=== PATIENT | male | born 1970 | race Caucasian/White ===

== ENCOUNTER 2019-01-20 18:04 | Emergency (ER) | payer BC, OTHER ==
[~2019-01-20] VITALS: Ht 182.9 cm; Wt 70.0 kg
[2019-01-20 18:20] VITALS: Ht 182.9 cm; Wt 70.0 kg
[2019-01-20] MEDS ORDERED: LIDOCAINE 2% (MDV) 20 ML INJ INJ STA (18:35)
[2019-01-20] MEDS ORDERED: DIPHTH/TET/ACEL PERTUSS (ADULT) 0.5 ML VIAL IM* ONE (19:00)
[2019-01-20] MEDS ORDERED: SULF1TAB31 PO (19:13)
[2019-01-20] MEDS ORDERED: ACET500C5 PO (19:44)
[2019-01-20 19:56] VITALS: BP 177/85; PULSE 68; RESP 18
--- NOTE | 2019-01-20 20:14 | ERD ---
ER Documentation Chief Complaint Chief Complaint Left thumb laceration HPI This is a 49-year-old male with history of hypertension who is brought in by rescue ambulance after striking left thumb with an ax earlier today. Patient states that he was chopping wood [employer] when he accidentally cut the tip of his left first digit off. Patient admits to bleeding and pain. Patient denies any tingling, numbness, lack sensation, decreased range of motion all the symptoms. Unsure if tetanus is up-to-date. Does not take blood thinners daily. ROS All systems reviewed and are negative except as per history of present illness. Medications Home Meds Active Scripts Acetaminophen* (Tylophen*) 500 Mg Capsule, 1 CAP PO Q6H PRN for PAIN AND OR ELEVATED TEMP, #20 CAP Prov:PARVEZ CAMPO PA-C 01/20/19 Sulfamethoxazole/Trimethoprim* (Bactrim Ds* Tablet) 1 Each Tablet, 1 TAB PO BID, #14 TAB Prov:PARVEZ CAMPO PA-C 01/20/19 PMhx/Soc Hx Cardiac Disorders: Yes (HTN) Hx Alcohol Use: Yes (OCCASIONALLY) Hx Substance Use: No Hx Tobacco Use: Yes Smoking Status: Current some day smoker Physical Exam Vitals Vital Signs Date Temp Pulse Resp B/P (MAP) Pulse Ox O2 O2 Flow FiO2 Time Delivery Rate 01/20/19 98.0 68 18 177/85 96 Room Air 19:56 (115) 01/20/19 98.1 80 18 168/80 100 18:20 (109) Physical Exam Physical Exam Vitals signs: Reviewed by me. General: Well developed, well nourished, in no acute distress. Patient is awake and alert. Head: Normocephalic, atraumatic. Eyes: Normal conjunctiva, Pupils PERRLA, EOM intact grossly ENT: Pharynx is clear, Moist mucous membranes, external ears, nose and mouth normal Neck: Supple, no masses, lymphadenopathy or JVD Respiratory: Clear to auscultation bilaterally with no wheezing, rhonchi, rales, no distress Cardiovascular: RRR, no murmurs, rubs, or gallops Upper Extremity -left Skin: There is an avulsion of patient's left first digit, no bone is exposed, there is some active bleeding, Compartments: Soft Motor: Full active range of motion hand/fingers Sensation: Intact shoulder/pinky/middle finger/thumb web space Bones: Nontender forearm/wrist/hand Snuffbox: Nontender Joints: No effusion Pulses/Perfusion: 2+ radial, Capillary refill < 2 seconds Radial ulnar and median nerve tested for sensory motor deficit without any dysfunction Neurologic: Alert and oriented, moving all extremities, normal speech, no focal weakness, no cerebellar signs. Normal mentation Skin: warm and dry, No rash Psych: Normal mood Results 24 hrs Current Medications Medications Dose Sig/David Start Time Status Last (Trade) Ordered Route PRN Stop Time Admin Dose Reason Admin Diphtheria/ 0.5 ml ONCE ONCE 01/20/19 DC 01/20/19 Tetanus/Acell IM* 19:00 18:48 Pertussis 01/20/19 19:01 (Adacel) Lidocaine 20 ml ONCE STAT 01/20/19 DC (Xylocaine INJ 18:35 2% (Mdv) 20 01/20/19 18:36 ml) Procedures/MDM PROCEDURES: Laceration Repair by me: Anesthesia: Digital block with 2% lidocaine Location: Left first digit Tendon/Joint/Nerves: No injury Foreign body: None detected after copious irrigation and exploration Technique: 2 [id number] sutures were used to stop bleeding Complexity: No subcutaneous sutures/mucosal repair/edge excision Patient's bleeding was easily controlled in the department and there is no indication of anemia. No evidence of compartment syndrome, neurologic injury, vascular injury, open joint, tendon laceration, or foreign body. Patient is appropriate for outpatient follow up. 48 hour wound check. Scar minimization instructions given. ER COURSE: The patient was stable throughout ED course. I kept the patient and/or family informed of laboratory and diagnostic imaging results throughout the emergency room course. The patient was promptly evaluated and a treatment plan was devised based on H&P and other data. This plan was discussed with the patient who agreed and had no further questions or concerns prior to discharge. [employer]-year male presents ED with avulsion of left first digit. X-ray showed no fractures or dislocation. Bleeding of patient's left first digit was stopped with 2 [id number] sutures. No evidence of compartment syndrome, neurologic injury, vascular injury, open joint, tendon laceration, fracture, dislocation, or foreign body. Patient's vitals are stable and pt can be managed with close out patient follow up. Advised patient to return to ED or to be seen by primary care for a 48 hour wound check. Pt will also need to return to ED or be seen by primary care provider to have sutures removed in 7-10 days. Return to ED with any worsening symptoms and if patient starts experiencing fever, chills, purulent drainage, warmth, swelling at laceration site this may be indications that wound has become infected and patient may need antibiotics. DISPOSITION PLAN: We discussed follow up with the patient's primary care doctor within 24 to 48 hours. Patient counseled regarding my diagnostic impression and care plan. Prior to discharge all questions answered. Pt agrees with treatment plan and understands strict return precautions. Precautionary instructions provided including instructions to return to the ER if not improving or for any worsening or changing symptoms or concerns. SPECIALIST FOLLOW UP RECOMMENDED: None Patient has been advised to follow up with primary care in 1-2 days. Disclaimer: Inadvertent spelling and grammatical errors are likely due to EHR/dictation software use and do not reflect on the overall quality of patient care. Also, please note that the electronic time recorded on this note does not necessarily reflect the actual time of the patient encounter. Blood Pressure Assessment: Patient's blood pressure was elevated (>120/80) but appears stable without evidence of hypertension emergency or urgency. The patient was counseled about the risks of hypertension and urged to pursue outpatient monitoring and therapy within a week with their primary care fredi anMoustapha Guaman Diagnosis: Primary Impression: Finger avulsion Encounter type: initial encounter Qualified Codes: S61.209A - Unspecified open wound of unspecified finger without damage to nail, initial encounter Condition: Stable Patient Instructions: Laceration, All, Nail Avulsion, Complete Referrals: [facility] YOU HAVE RECEIVED A MEDICAL SCREENING EXAM AND THE RESULTS INDICATE THAT YOU DO NOT HAVE A CONDITION THAT REQUIRES URGENT TREATMENT IN THE EMERGENCY DEPARTMENT. FURTHER EVALUATION AND TREATMENT OF YOUR CONDITION CAN WAIT UNTIL YOU ARE SEEN IN YOUR DOCTORS OFFICE WITHIN THE NEXT 1-2 DAYS. IT IS YOUR RESPONSIBILITY TO MAKE AN APPOINTMENT FOR FOLOW-UP CARE. IF YOU HAVE A PRIMARY DOCTOR --you should call your primary doctor and schedule an appointment IF YOU DO NOT HAVE A PRIMARY DOCTOR YOU CAN CALL OUR PHYSICIAN REFERRAL HOTLINE AT IF YOU CAN NOT AFFORD TO SEE A PHYSICIAN YOU CAN CHOSE FROM THE FOLLOWING [facility] [address] [facility] [address] [facility] [address] [facility] [address] [facility] [address] [facility]. [facility] [address] Additional Instructions: Return in 2 days or be seen by her primary care physician for wound check. Will need to have sutures removed in roughly 10 days. Patient advised to return to the ED immediately for new or worsening symptoms. Patient advised to follow up with primary care provider in the next 24-48 hours. Patient verbalized understanding and agrees with treatment plan and course of action. If patient has no primary care they may follow up with one of the [facility] clinics listed on the following page or one of the options listed below [facility] + [facility] [address] [place] [address] or [facility] [address] [place] [address] or [facility] [address] [place] [address] PARVEZ CAMPO PA-C Jan 20, 2019 20:14
== END 2019-01-20 20:03 | disposition home or self-care (01) ==
LOC: FTE 18:04
DX: S61.012A Laceration without foreign body of left thumb without damage to nail, initial encounter (principal); I10 Essential (primary) hypertension; W26.8XXA Contact with other sharp object(s), not elsewhere classified, initial encounter; Y92.9 Unspecified place or not applicable; Z23 Encounter for immunization
CPT/HCPCS: 12001; 73140; 90471; 90715; Z7502; Z7610